=== PATIENT | female | born 1940 | race Asian ===

== ENCOUNTER 2018-12-25 11:36 | Emergency (ER) | payer OTHER, BC ==
[2018-12-25 11:43] VITALS: TEMP 98.8; BMI 20.7
[2018-12-25] MEDS ORDERED: ACETAMINOPHEN 325 MG TABLET (FP) ONE (11:59)
[2018-12-25] MEDS ORDERED: SODIUM CHLORIDE 0.9% 500 ML INFUS.BAG IV ONE (12:25)
--- NOTE | 2018-12-25 12:31 | PDOC ---
History of Present Illness - General Chief Complaint: Weakness Stated Complaint: DIZZINESS/WEAKNESS Time Seen by Provider: 12/25/18 12:01 - History of Present Illness Initial Comments: Ms. Brand is a 78 y/o female with PMH of HTN and HLD, presenting with leg weakness that started yesterday and has since resolved. Reports that yesterday, she was in the kitchen when she felt her legs were weak and subsequently lowered herself to the floor. Denies any head trauma, neck trauma, loss of consciousness. Reports feeling mildly lightheaded. Reports good PO intake. Denies heart palpitations prior to fall. Denies chest pain, abdominal pain, shortness of breath. Denies dysuria, hematuria, hematochezia, melena, nausea, vomiting. Denies fever, cough or recent illness. PMH: Denies hx of cardiac disease or stroke. SocHx: denies smoking, ETOH, drugs FamHx: non-contributory Past History - Past Medical History Allergies/Adverse Reactions: Allergies Allergy/AdvReac Type Severity Reaction Status Date / Time No Known Allergies Allergy Verified 12/25/18 11:43 COPD: No HTN: Yes Hypercholesterolemia: Yes - Suicide/Smoking/Psychosocial Hx Smoking History: Never smoked Review of Systems - Review of Systems Comments:: ROS GENERAL/CONSTITUTIONAL: No fever or chills. Reports lower extremity weakness. HEAD, EYES, EARS, NOSE AND THROAT: No change in vision. No change in hearing. No sore throat._ CARDIOVASCULAR: No chest pain or shortness of breath_ RESPIRATORY: Denies cough, hemoptysis_ GASTROINTESTINAL: No nausea, vomiting, diarrhea or constipation._ GENITOURINARY: No dysuria, frequency, or change in urination._ MUSCULOSKELETAL: No joint or muscle swelling or pain. No neck or back pain._ SKIN: No rash. NEUROLOGIC: Reports lightheadedness. No headache, vertigo, loss of consciousness , or change in strength/sensation._ ENDOCRINE: No increased thirst. No abnormal weight change. HEMATOLOGIC/LYMPHATIC: No anemia, easy bleeding, or history of blood clots._ ALLERGIC/IMMUNOLOGIC: No hives or skin allergy._ *Physical Exam - Vital Signs Last Vital Signs Temp Pulse Resp BP Pulse Ox 98.8 F 78 18 168/69 97 12/25/18 11:39 12/25/18 11:39 12/25/18 11:39 12/25/18 11:39 12/25/18 11:39 - Physical Exam Comments: GENERAL: Awake, alert, and oriented to person/place/time, in no acute distress_ HEAD: No signs of trauma, normocephalic, atraumatic _ EYES: PERRLA, EOMI, sclera anicteric, conjunctiva clear_ ENT: Hearing grossly normal, nares patent, oropharynx clear without exudates. No uvular deviation. Moist mucosa_ NECK: Normal ROM, supple, no lymphadenopathy, JVD, or masses_ LUNGS: No distress, speaks in full sentences, clear to auscultation bilaterally _ HEART: Regular rate and rhythm, normal S1 and S2, no murmurs appreciated, peripheral pulses normal and equal bilaterally._ ABDOMEN: Soft, nontender, normoactive bowel sounds. No guarding, no rebound. No masses_ EXTREMITIES: Normal inspection, Normal range of motion, no edema. No clubbing or cyanosis. 5/5 strength and sensation in upper/lower extremities (flexion/ extension/flight director strength) NEUROLOGICAL: Cranial nerves II through XII grossly intact. Normal speech, normal gait, no focal sensorimotor deficits. Cerebellar testing negative. SKIN: Warm, Dry, normal turgor, no rashes or lesions noted_ ED Treatment Course - LABORATORY CBC & Chemistry Diagram: 12/25/18 12:30 12/25/18 12:30 - RADIOLOGY Radiology Studies Ordered: Category Date Time Status CHEST PA & LAT [RAD] Stat Radiology 12/25/18 12:24 Ordered Medical Decision Making - Medical Decision Making 78F with hx of HTN, HLD, presenting with bilateral LE weakness yesterday that has since resolved. No head trauma, no fall. DDx includes r/o ACS, TIA, or weakness due to electrolyte abnormality, dehydration. Obtain CBC, CMP, trop, EKG, TSH, UA, UC, CT head. 12/25/18 14:28 CT shows no acute intracranial process. CXR shows no acute intrathoracic process. EKG NSR, 73 bpm, lef axis deviation, no ST elevation/depression, QTc 511 ms. Labs and UA wnl. Trop neg. Discussed with the patient and her son, who would like to go home. Given that her findings are unremarkable in the ED, plan to d/c home and f/u within [address] Bazzi (neurologist) who can perform MRI and further stroke work up. *DC/Admit/Observation/Transfer Diagnosis at time of Disposition: Weakness - Discharge Dispostion Disposition: HOME Condition at time of disposition: Stable Decision to Admit order: No - Referrals Referrals: ON STAFF,NOT [Primary Care Provider] - Pablo Bazzi DO [Staff Physician] - - Patient Instructions Additional Instructions: Please continue taking your medications as prescribed by your primary care physician. Please make an appointment with the neurologist Dr. Bazzi to follow up and for an MRI. If you experience any new, worsening, or concerning symptoms, including severe headache, severe nausea/vomiting, weakness, loss of consciousness, fall, facial droop, slurred speech, or any other concerns, please return to the emergency department immediately. - Post Discharge Activity
[2018-12-25 13:08] LABS: BASO % 0.5 % (0-2.0); EOS % 1.3 % (0-4.5); HEMATOCRIT 43.4 % (32.4-45.2); HEMOGLOBIN 14.8 GM/dL (10.7-15.3); LYMPH % 37.6 % (8-40); MCH 32.8 pg (25.7-33.7); MCHC 34.1 g/dl (32.0-36.0); MEAN CELL VOLUME 96.1 fl (80-96); MEAN PLT VOLUME 7.9 fl (7.5-11.1); MONO % 11.1 % (3.8-10.2); NEUT % 49.5 % (42.8-82.8); PLATELET COUNT 254 K/MM3 (134-434); RBC 4.52 M/mm3 (3.60-5.2); RDW 13.6 % (11.6-15.6); WHITE BLOOD COUNT 5.7 K/mm3 (4.0-10.0)
[2018-12-25 13:17] LABS: URINE APPEARANCE CLEAR; URINE BILIRUBIN NEGATIVE (NEGATIVE); URINE COLOR YELLOW; URINE GLUCOSE (UA) NEGATIVE (NEGATIVE); URINE KETONE NEGATIVE (NEGATIVE); URINE LEUK ESTERASE NEGATIVE (NEGATIVE); URINE NITRITE NEGATIVE (NEGATIVE); URINE PROTEIN NEGATIVE (NEGATIVE); URINE UROBILINOGEN 0.2 mg/dL (0.2-1.0)
[2018-12-25 13:37] LABS: ALBUMIN 3.9 g/dl (3.4-5.0); BILIRUBIN,TOTAL 1.1 mg/dL (0.2-1); BLOOD UREA NITROGEN 17.5 mg/dL (7-18); CALCIUM 9.2 mg/dL (8.5-10.1); CREATININE 0.8 mg/dL (0.55-1.3); POTASSIUM 3.8 mmol/L (3.5-5.1); TOT PROT 7.5 g/dl (6.4-8.2)
[2018-12-25 15:07] VITALS: BP 146/77; PULSE 72
--- NOTE | 2018-12-26 10:54 | EKG ---
Test Reason : Blood Pressure : / mmHG Vent. Rate : 073 BPM Atrial Rate : 073 BPM P-R Int : 166 ms QRS Dur : 140 ms QT Int : 464 ms P-R-T Axes : 059 -33 108 degrees QTc Int : 511 ms NORMAL SINUS RHYTHM POSSIBLE LEFT ATRIAL ENLARGEMENT LEFT AXIS DEVIATION LEFT BUNDLE BRANCH BLOCK ABNORMAL ECG WHEN COMPARED WITH ECG OF 29-MAR-2000 11:28, LEFT BUNDLE BRANCH BLOCK IS NOW PRESENT Confirmed by DIANA RICE, RAMSEY ([id number]) on 12/26/2018 10:54:02 AM Referred By: Confirmed By:RAMSEY ORTIZ MD
== END 2018-12-25 15:07 | disposition home or self-care (01) ==
LOC: JER 11:36
PROC: 3E0337Z Introduction of Electrolytic and Water Balance Substance into Peripheral Vein, Percutaneous Approach (ICD-10-PCS; principal; 2018-12-25)
DX: R53.1 Weakness (principal); I10 Essential (primary) hypertension; E78.5 Hyperlipidemia, unspecified
CPT/HCPCS: 36415; 70450-TC; 71046-TC-FY; 80053; 81003; 82550; 84443; 84484; 85025; 87077; 87086; 93005; 93010; 99283-25